=== PATIENT | female | born 1995 | race Two or more races ===

== ENCOUNTER 2020-03-02 13:13 | Outpatient (CLI) | payer OTHER | END 2020-03-02 13:19 | disposition home or self-care (01) | LOC: LAB 13:13 | PROVIDERS: ATTEND Emergency Medicine Pediatric Emergency Medicine | DX: Z03.818 Encounter for observation for suspected exposure to other biological agents ruled out (principal) ==

== ENCOUNTER → 2020-03-09 | Emergency (ER) | payer OTHER ==
[~2020-03-09] VITALS: Ht 165.1 cm; Wt 77.1 kg
[~2020-03-09] MED LIST: BACTRIM DS TAB1 EACH PO
== END | disposition home or self-care (01) ==
LOC: ER 16:09
DX: S70.372A Other superficial bite of left thigh, initial encounter (principal); L03.116 Cellulitis of left lower limb; W57.XXXA Bitten or stung by nonvenomous insect and other nonvenomous arthropods, initial encounter; Y93.89 Activity, other specified; Y92.89 Other specified places as the place of occurrence of the external cause; Y99.8 Other external cause status

== ENCOUNTER 2020-03-13 15:55 | Emergency (ER) | payer OTHER ==
[~2020-03-13] VITALS: Ht 165.1 cm; Wt 77.1 kg
[2020-03-13] MEDS ORDERED: BACTRIM DS TAB1 EACH PO (16:48)
== END 2020-03-13 16:51 | disposition home or self-care (01) ==
LOC: ER 15:55
DX: L02.416 Cutaneous abscess of left lower limb (principal)

== ENCOUNTER → 2021-01-26 | Emergency (ER) | payer OTHER ==
[~2021-01-26] VITALS: Ht 152.4 cm; Wt 77.1 kg
[~2021-01-26] MED LIST changes: +KETO10TA2 PO; +NORFLEX100MG PO
== END | disposition home or self-care (01) ==
LOC: ER 11:51
DX: S50.11XA Contusion of right forearm, initial encounter (principal); S50.12XA Contusion of left forearm, initial encounter; M54.5 Low back pain; S80.12XA Contusion of left lower leg, initial encounter; V49.88XA Car occupant (driver) (passenger) injured in other specified transport accidents, initial encounter; Y93.89 Activity, other specified; Y92.89 Other specified places as the place of occurrence of the external cause; Y99.8 Other external cause status

== ENCOUNTER 2024-02-13 11:28 | Emergency (ER) | payer OTHER ==
[~2024-02-13] VITALS: Ht 165.1 cm; Wt 85.7 kg
[2024-02-13] MEDS ORDERED: TRIAMCINOLONE ACETONIDE 40 MG/ML VIAL IM STA (12:45)
[2024-02-13] MEDS ORDERED: TRIAMCINOLONE ACETONIDE 40 MG/ML VIAL ONE (13:34)
== END 2024-02-13 13:52 | disposition home or self-care (01) ==
LOC: ER 11:29
DX: L30.8 Other specified dermatitis (principal)